=== PATIENT | female | born 1985 | race Caucasian/White ===

== ENCOUNTER 2018-08-05 06:43 | Day surgery (SDC) | payer BC ==
[~2018-08-05] VITALS: Ht 157.5 cm; Wt 70.8 kg
--- NOTE | ~2018-08-05 | OP ---
PATIENT NAME: CATHY FORTE MEDICAL RECORD: [id number] :85 LOCATION:[place] ADMISSION DATE: SURGEON: DAWOOD CHAVEZ MD DATE OF OPERATION: 08/05/2018 PREOPERATIVE DIAGNOSIS: Pilonidal cyst. POSTOPERATIVE DIAGNOSIS: Pilonidal cyst. PROCEDURE: Pilonidal cystectomy. SURGEON: Dawood Chavez MD REPORT OF PROCEDURE: The patient was placed in the jackknife prone position and the perianal region was prepped and draped in sterile fashion. The patient had 2 small fistulous tracts extending out from the pilonidal cyst. We probed each of these tracts and it led to the same pocket just underneath the skin. We used a skin incision through the gluteal crease incorporating these 2 openings and opened up into the subcutaneous tissues. There was noted to be a small pocket present consistent with a pilonidal cyst. This pocket was excised until we got down to the surrounding normal looking fatty tissue. The excision was carried out all the way down to the tip of the coccyx. We irrigated out the wound with normal saline and any bleeding was treated with electrocautery. I saw no other evidence of any fistulous tracts or fluid collections present. At this point, the wound was infused with a total of 10 mL of 0.25% Marcaine with epinephrine and then packed with gauze. COMPLICATIONS: None. CONDITION: Stable. ANESTHESIA: General endotracheal and local. BLOOD LOSS: Minimal. TRANSINT:[id number] Voice Confirmation ID: [id number] DOCUMENT ID: [id number] DAWOOD CHAVEZ MD at 1409 CC: MANUEL CAMPBELL [id number] DICTATION DATE: 08/05/18 0946 BOTTLE WASHER: 08/05/18 1002 [facility] 08/05/18 [facility] [address] [place] [address]
[~2018-08-05 06:43] MED LIST: JUNEL FE 1.5 M1 EACH PO
[2018-08-05 07:10] LABS: BASOPHILS 0.5 % (0-2); EOSINOPHILS 3.6 % (0-7); HEMATOCRIT 44.3 % (36.0-48.0); HEMOGLOBIN 14.6 g/dL (12-16); IMMATURE GRANULOCYTES 0.1 % (0-5); LYMPHOCYTES 40.5 % (15-50); MCH 31.1 pg (26.0-34.0); MCV 94.3 fL (80.0-100.0); MEAN PLATELET VOLUME 11.6 fL (7.4-10.4); MONOCYTES 5.5 % (2-11); NEUTROPHILS 49.8 % (40-80); WBC 8.4 10x3/uL (4.8-10.8)
[2018-08-05 07:19] LABS: CALC OSMOLALITY 278 mosm/kg (275-300); CALCIUM 8.8 mg/dL (8.5-10.1); CARBON DIOXIDE 24.7 mmol/L (21.0-32.0); CHLORIDE - SERUM 107 mmol/L (98-107); CREATININE - SERUM 0.7 mg/dL (0.6-1.3); GLUCOSE 103 mg/dL (74-106); POTASSIUM - SERUM 3.9 mmol/L (3.5-5.1); SODIUM 141 mmol/L (136-145); UREA NITROGEN 6 mg/dL (7-18); eGFR NON AFRICAN AMERICAN > 90 mL/min (90-120)
[2018-08-05 07:28] LABS: PLATELET COUNT 225 10x3/uL (130-400)
[2018-08-05] MEDS ORDERED: BIRTH CONTROL PILLS (07:58)
[2018-08-05 08:15] VITALS: BP 98/60; Ht 157.5 cm; Wt 70.8 kg
[2018-08-05 08:28] LABS: HCG URINE NEGATIVE (NEGATIVE)
[2018-08-05] MEDS ORDERED: NORCO 10-325 TA1 TAB PO (09:37)
== END 2018-08-05 11:45 | disposition home or self-care (01) ==
LOC: D.OPS 06:43 → D.PAN 08:00 → D.OPS 08:00 → D.PAN 09:00 → D.OPS 11:45
PROVIDERS: Surgery
DX: L05.91 Pilonidal cyst without abscess (principal)

== ENCOUNTER → 2018-10-07 18:46 | Outpatient (CLI) | payer BC ==
[2018-08-05 08:15] VITALS: BMI 28.6
[~2018-10-07 18:46] MED LIST changes: +BIRTH CONTROL PILLS; +NORCO 10-325 TA1 TAB PO
== END | disposition home or self-care (01) ==
LOC: D.LABREF 18:46
DX: L05.01 Pilonidal cyst with abscess (principal)

== ENCOUNTER → 2019-10-05 08:19 | Outpatient (CLI) | payer BC ==
[2018-08-05 08:15] VITALS: BMI 28.6
== END | disposition home or self-care (01) ==
LOC: D.ECHO 08:19
PROVIDERS: ATTEND Family Medicine
DX: G45.9 Transient cerebral ischemic attack, unspecified (principal)

== ENCOUNTER → 2020-04-24 14:18 | Outpatient (CLI) | payer BC ==
[2018-08-05 08:15] VITALS: BMI 28.6
== END | disposition home or self-care (01) ==
LOC: D.HCCARDIO 14:18
PROVIDERS: ATTEND Internal Medicine Cardiovascular Disease
DX: R06.09 Other forms of dyspnea (principal)

== ENCOUNTER → 2020-05-09 09:25 | Outpatient (CLI) | payer BC ==
[2018-08-05 08:15] VITALS: BMI 28.6
== END | disposition home or self-care (01) ==
LOC: D.HCCARDIO 09:25
PROVIDERS: ATTEND Internal Medicine Cardiovascular Disease
DX: R94.39 Abnormal result of other cardiovascular function study (principal)

== ENCOUNTER 2020-05-31 07:42 | Day surgery (SDC) | payer BC ==
[~2020-05-31] VITALS: Ht 157.5 cm; Wt 75.1 kg
--- NOTE | ~2020-05-31 | HEMODYNAMI ---
PATIENT:CATHY FORTE MEDICAL RECORD: [id number] : 85 LOCATION:[facility] ADMISSION DATE: 05/31/20 Generatedon:05/31/202010:37 Patient name: CATHY FORTE Patient #: [id number] SSN: : 1985 Date of study: 05/31/2020 Page: Of Hemodynamic Procedure Report Patient Data Patient Demographics Procedure consent was obtained First Name: CATHY Gender: Female Last Name: REANNA : 1985 [facility] Initial: CHUNG Age: 35 year(s) Patient #: [id number] Race: Unknown Additional ID: [id number] Contact details [address]: [address] [place] [address] ROAD State: [place] City: [place] Zip code: [address] Past Medical History Allergies Allergen Reaction Date Comments Reported Penicillins 05/31/2020 Admission Admission Data Admission Date: 05/31/2020 Admission Time: 7:42 Lab Results Lab Result Date: 05/31/2020 Lab Result Time: 0:00 Biochemistry Name Units Result Min Max BUN mg/dl 14 --(--*-)-- 7 18 Creatinine mg/dl 0.6 --(*---)-- 0.6 1.3 eGFR ml/min 90 --(*---)-- 90 120 NONAFRICAN CBC Name Units Result Min Max Hematocrit % 44.7 --(*---)-- 42 54 Hemoglobin g/dl 14.4 --(*---)-- 13.5 17.5 Procedure Procedure Types Cath Procedure Diagnostic Procedure LHC LHC w/Coronaries Sedation Charges Moderate Sedation up to 15 minutes Procedure Description Procedure Date Procedure Date: 05/31/2020 Procedure Start Time: 10:20 Procedure End Time: 10:31 Procedure Staff Name Function Osmin Morales MD Performing Physician Jane Castillo RT Monitor Eden Keane RT Scrub Joie Tipton RN Nurse Procedure Data Cath Procedure Fluoroscopy Diagnostic fluoroscopy Total fluoroscopy Time: 1.9 time: 1.9 min min Diagnostic fluoroscopy Total fluoroscopy dose: 337 dose: 337 mGy mGy Contrast Material Contrast Material Type Amount (ml) Isovue 300 62 Entry Location Entry Primary Successful Side Size Upsize Upsize Entry Closure Succes sful Closure Location (Fr) 1 (Fr) 2 (Fr) Remarks Device Remarks Femoral Right 5 Fr Exoseal artery Estimated blood loss: 10 ml Diagnostic catheters Device Type Used For End Catheter Placement MULTIPACK JL 4.0 5Fr Procedure catheter MULTIPACK 3DRC 5Fr Ventriculography catheter MULTIPACK Pigtail 5 Fr Ventriculography catheter Procedure Complications No complications Procedure Medications Medication Administration Route Dosage 0.9% NaCl I.V. 100 ml/hr Oxygen etCO2 Nasal cannula 2 l/min Lidocaine 2% added to field 20 Heparin Flush Bag added to field 2 bags (1000units/500ml NS) Versed I.V. 2 mg Fentanyl I.V. 50 mcg Versed I.V. 2 mg Fentanyl I.V. 50 mcg Zofran I.V. 4 mg Phenergan I.V. 25 mg Lopressor I.V. 2.5 mg Hemodynamics Rest Heart Rate: 115 (bpm) Pressure Samples Time Site Value (mmHg) Purpose Heart Use Rate(bpm) 10:28 LV 147/-13,23 Snapshot 115 Gradients Valve Time Site Site Mean SEP/DFP Peak To Heart Use 1 2 (mmHg) (sec/min) Peak Rate (mmHg) (bpm) Aortic 10:29 LV AO 105 Snapshots Pre Cath Intra NCS Post Cath Vital Signs Time Heart Resp SPO2 etCO2 NIBP Rhythm Pain Sedation Rate (ipm) (%) (mmHg) (mmHg) Status Level (bpm) 9:54:55 86 16 100 29.3 Measuring NSR 0 (11) 10(A) , No pain 9:55:22 90 22 100 24.8 120/72(98) NSR 0 (11) 10(A) , No pain 9:59:34 96 18 100 33.1 124/72(98) NSR 0 (11) 10(A) , No pain 10:03:44 110 14 100 35.3 126/76(99) ST 0 (11) 10(A) , No pain 10:07:56 105 17 100 36.8 121/67(98) ST 0 (11) 10(A) , No pain 10:12:08 101 13 100 36.8 123/67(99) ST 0 (11) 10(A) , No pain 10:16:20 98 12 100 38.3 126/68(88) NSR 0 (11) 10(A) , No pain 10:20:32 112 12 100 35.3 132/70(90) ST 0 (11) 10(A) , No pain 10:24:43 119 13 100 36.1 133/68(92) ST 0 (11) 10(A) , No pain 10:28:57 102 13 100 33.1 127/69(90) ST 0 (11) 10(A) , No pain Medications Time Medication Route Dose Verified Delivered Reason Notes Eff ectiveness by by 9:55:07 0.9% NaCl I.V. 100 Osmin Joie used for ml/hr Andrew Tipton clerical manager 9:55:13 Oxygen etCO2 2 Osmin Joie used for Nasal l/min Andrew Tipton procedure cannula RN 9:55:18 Lidocaine 2% added 20ml Osmin Osmin for local to vial Andrew Morales MD anesthetic field 9:55:23 Heparin Flush added 2 Osmin Osmin used for Bag to bags Andrew Morales MD procedure (1000units/500ml field NS) 9:55:37 Zofran I.V. 4 mg Osmin Joie for nausea Andrew Tipton RN 9:55:55 Phenergan I.V. 25 mg Osmin Joie for nausea Andrew Tipton RN 10:18:54 Versed I.V. 2 mg Osmin Joie for Andrew Tipton sedation RN 10:18:59 Fentanyl I.V. 50 Osmin Joie for mcg Andrew Tipton sedation RN 10:23:17 Versed I.V. 2 mg Osmin Joie for Andrew Tipton sedation RN 10:23:21 Fentanyl I.V. 50 Osmin Joie for mcg Andrew Tipton sedation RN 10:29:08 Lopressor I.V. 2.5 Osmin Joie Per mg Andrew Tipton physician pond supervisor Log Time Note 9:40:49 Eden Keane RT(R) (CV) sent for patient. Start room use. 9:47:23 Informed consent obtained and on chart 9:48:00 Time tracking: Regular hours (M-F 7:00 - 5:00) 9:48:03 Plan of Care:Hemodynamics will remain stable., Cardiac rhythm will remain stable., Comfort level will be maintained., Respiratory function will remain adequate., Patient/ family verbilizes understanding of procedure., Procedure tolerated without complication., Recovers from procedure without complications.. 9:48:04 Procedure Status Elective Heart Cath (OP). 9:48:11 Patient received from Pre/Post Procedure Room to CCL 2 Alert and oriented. Tansferred to table in Supine position. 9:48:12 Warm blankets applied, and ni hugger turned on for patient comfort. 9:48:12 Correct patient and procedure confirmed by team. 9:48:12 ECG and BP/O2 sat monitors applied to patient. 9:48:19 H&P Date Dictated: 05/10/2020 Within 30 days and on chart., H&P Addendum completed by physician on day of procedure. (MUST COMPLETE FOR ALL OUTPATIENTS). 9:48:23 Patient allergic to Penicillins 9:48:36 Pre-procedure instructions explained to patient. 9:48:37 Pre-op teaching completed and patient verbalized understanding. 9:48:38 Family AVAILABLE WITH PHONE CALL 9:48:39 Patient NPO since Midnight. 9:48:41 Is the patient allergic to Iodine/contrast media? No. 9:48:42 Is patient on blood thinner?No 9:48:50 Patient diabetic? No. 9:49:18 HCG/Urine : negative 9:49:25 Previous problem with sedation/anesthesia? Yes ? 9:49:26 Snore? Yes 9:49:27 Sleep apnea? Yes 9:49:28 Deviated septum? No 9:49:29 Opens mouth fully? Yes 9:49:49 Sticks out tongue? Yes 9:49:51 Airway obstruction? No ? 9:49:53 Dentures? No ? 9:49:59 Pre procedure: right dorsailis pedis pulse 1+ Palpable, but thready & weak; easily obliterated 9:50:04 Modified Silvano's test Ulnar < 7 seconds 9:50:06 Patient pain scale 0/10 ?. 9:50:19 IV patent on arrival in right antecubital with 0.9% NaCl at [facility]. 9:52:04 Lab Result : BUN 14 mg/dl 9:52:04 Lab Result : Creatinine 0.6 mg/dl :: Lab Result : eGFR NONAFRICAN 90 ml/min :: Lab Result : Hemoglobin 14.4 g/dl :: Lab Result : Hematocrit 44.7 % 9:: Lab results completed and on chart. 9:52:12 Right Radial & Right Groin area was prepped with chlora-prep and draped in sterile fashion 9:: Alarms reviewed by R. N. 9:: Sharps counted by scrub and verified by R.N. 9:53:06 Vital chart was started 9:55:07 0.9% NaCl 100 ml/hr I.V. was administered by Joie Tipton RN; used for procedure; Verbal order read back and verified. 9:55:13 Oxygen 2 l/min etCO2 Nasal cannula was administered by Joie Tipton RN; used for procedure; Verbal order read back and verified. 9:55:18 Lidocaine 2% 20ml vial added to field was administered by Osmin Morales MD; for local anesthetic; Verbal order read back and verified. 9:55:23 Heparin Flush Bag (1000units/500ml NS) 2 bags added to field was administered by Osmin Morales MD; used for procedure; Verbal order read back and verified. 9:55:37 Zofran 4 mg I.V. was administered by Joie Tipton RN; for nausea; Verbal order read back and verified. 9:55:55 Phenergan 25 mg I.V. was administered by Joie Tipton RN; for nausea; Verbal order read back and verified. 10:10:04 Zero performed for pressure channel P1 10:18:19 Final Timeout: patient, procedure, and site verified with staff and physician. All members of the team are in agreement. 10:18:19 --------ALL STOP TIME OUT------ 10:18:21 Right Radial & Right Groin site verified by team. 10:18:24 Fire Safety Assessment: A--An alcohol-based skin anteseptic being used preoperatively., C--Open oxygen or nitrous oxide is being used., D--An ESU, laser, or fiber-optic light is being used. 10:18:28 Physical assessment completed. ASA score P 2 - A patient with mild systemic disease as per Osmin Morales MD. 10:18:33 1) 90+ Normal kidney functon but urine findings or structural abnormalities or genetic trait point to kidney disease. 10:18:37 Sedation plan: IV Moderate Sedation Medication:Versed, Fentanyl 10:18:54 Versed 2 mg I.V. was administered by Joie Tipton RN; for sedation; Verbal order read back and verified. 10:18:59 Fentanyl 50 mcg I.V. was administered by Joie Tipton RN; for sedation; Verbal order read back and verified. 10:19:54 Use device set Femoral Dx 10:19:57 Procedure started. 10:19:57 Full Disclosure recording started 10:20:05 ACIST Syringe (31860) opened to sterile field. 10:20:05 Bag Decanter (2002S) opened to sterile field. 10:20:06 Medline Cath Pack ([id number]) opened to sterile field. 10:20:07 ACIST Hand Control (11361) opened to sterile field. 10:20:08 ACIST Manifold (66921) opened to sterile field. 10:20:08 DIAGNOSTIC Multipack 5Fr catheter set ([id number]) opened to sterile field. 10:20:09 Tegaderm 4 x 4 (1626W) opened to sterile field. 10:20:11 EXOSEAL 5Fr (EX500) opened to sterile field. 10:20:12 SHEATH 5FR [place] (HDR241) opened to sterile field. 10:20:13 EMERALD Guide Wire (203-392) opened to sterile field. 10:20:17 Local anesthetic to right femoral artery with Lidocaine 2% by Osmin Morales MD.INITIAL ACCESS ONLY 10:20:58 A 5 Fr sheath was inserted into the Right Femoral artery 10:22:39 A MULTIPACK JL 4.0 5Fr catheter was advanced over the wire and used for Procedure. 10:23:17 Versed 2 mg I.V. was administered by Joie Tipton RN; for sedation; Verbal order read back and verified. 10:23:21 Fentanyl 50 mcg I.V. was administered by Joie Tipton RN; for sedation; Verbal order read back and verified. 10:23:50 LCA angiography performed. 10:24:34 Catheter removed. 10:24:44 A MULTIPACK 3DRC 5Fr catheter was advanced over the wire and used for Ventriculography. 10:25:32 RCA angiography performed. 10:26:19 Catheter removed. 10::26 A MULTIPACK Pigtail 5 Fr catheter was advanced over the wire and used for Ventriculography. 10::34 LV gram done using PATEL 10:27:05 Zero performed for pressure channel P1 10:28:50 EF : 50 % 10:29:02 Catheter removed. 10:29:08 Lopressor 2.5 mg I.V. was administered by Joie Tipton RN; Per physician; Verbal order read back and verified. 10:29:20 Sheath removed intact; hemostasis achieved with Exoseal to the Right Femoral artery. 10::34 Procedure ended.(Physican Out) 10:29:46 Fluoroscopy time 01.90 minutes. 10:29:50 Fluoroscopy dose: 337 mGy 10:29:50 Flurop Dose total: 337 10:30:13 Dose Area Product 29522 mGy/cm. 10:30:17 Contrast amount:Isovue 300 62ml. 10:30:20 Maximum allowable dose exceeded? No. 10:30:22 Sharps counted by scrub and verified by R.N. 10:30:25 Insertion/operative site no bleeding no hematoma. 10:30:28 Post-op/insertion site Right Femoral artery dressed using a 4 x 4 and Tegaderm. 10:30:31 Post Procedure Pulses reassessed and unchanged 10:30:35 Post-procedure physical assessment completed. ASA score P 2 - A patient with mild systemic disease as per Osmin Morales MD. 10:30:38 Post procedure rhythm: unchanged. 10:30:43 Estimated blood loss: 10 ml 10:30:44 Post procedure instruction explained to patient.Patient verbalizes understanding. 10:30:52 Procedure type changed to Cath procedure, Diagnostic procedure, LHC, LHC w/Coronaries, Sedation Charges, Moderate Sedation up to 15 minutes 10:30:54 Procedure and supply charges have been captured, reviewed, submitted and are correct. 10:31:12 Procedure Complication : No complications 10:31:14 Vital chart was stopped 10:31:15 [facility] Findings: mild to moderate CAD (<70%) 10:31:17 See physician's report for complete and final results. 10:31:19 Report given to Pre/Post Procedure Room. 10:31:23 Patient transfered to Pre/Post Procedure Room with Stretcher. 10:31:33 Procedure ended. 10:31:33 Full Disclosure recording stopped 10:31:40 End room use (Document Last) Device Usage Item Name Manufacture Quantity Catalog Hospital Part Current Minimal L ot# / Number Charge Number Stock Stock Serial# Code ACIST Acist 1 80194 196225 [id number] [id number] 20 Syringe Medical (81262) Systems Inc Bag Microtek 1 2001S 103031 80022 136595 5 Decanter Medical Inc. () Medline Medline 1 [id number] 565923 65026 675162 5 Cath Pack ([id number]) ACIST Hand Acist 1 79401 672079 669271 991068 5 Control Medical (15331) Systems Inc ACIST Acist 1 45040 651298 032673 199880 5 Manifold Medical (06073) Systems Inc DIAGNOSTIC Cardinal 1 [id number] 067060 95873 395418 30 Multipack Health 5Fr catheter set (EB2330) Tegaderm 4 3M 1 1626W 423416 712902 577560 5 x 4 (1626W) EXOSEAL 5Fr Cardinal 1 EX500 700089 613904 495041 10 (EX500) Health SHEATH 5FR Terumo 1 [id number] 058561 187067 345295 5 [place] (PUZ650) EMERALD Cardinal 1 502-455 233289 535744 739481 5 Guide Wire Health (502455) MULTIPACK Cardinal 1 924220 5 JL 4.0 5Fr Health catheter MULTIPACK Cardinal 1 [id number] 5 3DRC 5Fr Health catheter MULTIPACK Cardinal 1 [id number] 5 Pigtail 5 Health Fr catheter Signature Audit [place] Time Signature Unsigned Intra-Procedure 05/31/2020 Jane Castillo 10:36:47 AM RT(R) Intra-Procedure 05/31/2020 Joie Tipton 10:37:15 AM RN Intra-Procedure 05/31/2020 Osmin Morales MD 10:37:45 AM Signatures Performing Physician : Signature : Osmin Morales MD Date : Time : Monitor : Jane Jonathan Signature : RT Date : Time : Nurse : Joie Saeed RN Signature : Date : Time : [place] [address] [place] [address]
[2020-05-31] MEDS ORDERED: JUNEL FE 1.5-31 EACH PO (08:14)
[2020-05-31 08:25] VITALS: BP 122/57; Ht 157.5 cm; Wt 75.1 kg
[2020-05-31 08:36] LABS: BASOPHILS 0.5 % (0-2); EOSINOPHILS 3.8 % (0-7); HEMATOCRIT 44.7 % (36.0-48.0); HEMOGLOBIN 14.4 g/dL (12-16); IMMATURE GRANULOCYTES 0.2 % (0-5); LYMPHOCYTES 37.5 % (15-50); MCH 30.3 pg (26.0-34.0); MCHC 32.2 g/dL (31.0-37.0); MCV 94.1 fL (80.0-100.0); MONOCYTES 5.3 % (2-11); NEUTROPHILS 52.7 % (40-80); PLATELET COUNT 253 10x3/uL (130-400); RBC 4.75 10x6/uL (4.00-5.40); RDW 12.6 % (11.5-14.5); WBC 8.7 10x3/uL (4.8-10.8)
[2020-05-31 08:50] LABS: HCG SERUM NEGATIVE (NEGATIVE)
[2020-05-31 08:54] LABS: ALT (SGPT) 27 U/L (10-68); CALC OSMOLALITY 278 mosm/kg (275-300); CALCIUM 8.1 mg/dL (8.5-10.1); CARBON DIOXIDE 27.2 mmol/L (21.0-32.0); CHLORIDE - SERUM 106 mmol/L (98-107); CHOLESTEROL, TOTAL 226 mg/dL (0-200); CREATININE - SERUM 0.6 mg/dL (0.6-1.3); GLUCOSE 96 mg/dL (74-106); HDL CHOLESTEROL 38 mg/dL (32-96); LDL CHOLESTEROL 168 mg/dL (0-100); LDL-HDL RATIO 4.4 ratio (1.5-3.5); SODIUM 139 mmol/L (136-145); TRIGLYCERIDE 100 mg/dL (30-200); UREA NITROGEN 14 mg/dL (7-18); eGFR NON AFRICAN AMERICAN > 90 mL/min (90-120)
[2020-05-31 08:57] LABS: POTASSIUM - SERUM 4.1 mmol/L (3.5-5.1)
--- NOTE | 2020-05-31 10:47 | NUR ---
PT ARRIVED BY STRETCHER. PLACED ON MONITORS. ASSESSMENT COMPLETED. VSS AT THIS TIME. PT SHAKING AND REPORTS BEING COLD. WARM BLANKETS X 2 APPLIED AT THIS TIME. CALL LIGHT WITHIN REACH. NO OTHER NEEDS AT THIS TIME.
--- NOTE | 2020-05-31 11:02 | NUR ---
PT RESTING COMFORTABLY. VSS. RIGHT GROIN DRESSING C/D/I. NO S/S OF HEMATOMA NOTED. CALL LIGHT WITHIN REACH.
--- NOTE | 2020-05-31 11:37 | NUR ---
PT RESTING COMFORTABLY. VSS AT THIS TIME. CALL LIGHT WITHIN REACH. RIGHT GROIN DRESSING C/D/I. NO S/S OF HEMATOMA NOTED. RIGHT PEDAL PULSE PALPABLE.
--- NOTE | 2020-05-31 12:00 | NUR ---
RIGHT GROIN DRESSING C/D/I. NO S/S OF HEMATOMA NOTED. CALL LIGHT WITHIN REACH. VSS AT THIS TIME. HEAD OF BED INC TO 30 DEGREES. TOLERATED WELL. PT SET UP WITH SANDWICH TRAY AND DRINK. DENIES NAUSEA/PAIN.
--- NOTE | 2020-05-31 12:30 | NUR ---
RIGHT GROIN DRESSING C/D/I. NO S/S OF HEMATOMA NOTED. CALL LIGHT WITHIN REACH. VSS AT THIS TIME. PIV D/C'D WITH CATH TIP INTACT. TOLERATED WELL. PT INSTRUCTED TO GET UP AND DRESSED AT THIS TIME.NO ASSISTANCE NEEDED.
--- NOTE | 2020-05-31 12:45 | NUR ---
RIGHT GROIN DRESSING C/D/I. NO S/S OF HEMTOMA NOTED. PT AMBULATED TO RESTROOM. VOIDED WITHOUT DIFFICULTY. STEADY GAIT NOTED.
--- NOTE | 2020-05-31 12:55 | NUR ---
DISCUSSED DISCHARGE INSTRUCTIONS WITH PT. SHE VOICED UNDERSTANDING.
--- NOTE | 2020-05-31 13:00 | NUR ---
PT TAKEN DOWN TO VEHICLE BY WHEELCHAIR. NO S/S OF DISTRESS NOTED. ALL BELONGINGS AND PAPERWORK IN HAND.
== END 2020-05-31 13:00 | disposition home or self-care (01) ==
LOC: D.CATH 07:42
PROVIDERS: ATTEND Internal Medicine Cardiovascular Disease
DX: I20.0 Unstable angina (principal); R06.00 Dyspnea, unspecified; R00.2 Palpitations